=== PATIENT | male | born 1955 | race Caucasian/White ===

== ENCOUNTER → 2020-07-22 | Outpatient (CLI) | payer BC ==
--- NOTE | 2020-07-25 14:41 | SLEEPCENT ---
NOCTURNAL POLYSOMNOGRAPHY DATE: 07/22/2020 ORDERED BY: EMMA Stevens Nocturnal polysomnography was performed for evaluation of sleep physiology in this patient with a history of excessive somnolence and nonrestorative sleep. 7 hours and 56 minutes of data were reviewed. There were only 165 minutes of sleep identified. Sleep latency was prolonged at 42.5 minutes. REM latency was prolonged at 222 minutes. Sleep architecture showed fragmentation. There were two REM cycles noted. Overall sleep efficiency was 35.2%. The electrocardiogram showed a sinus rhythm with an average heart rate of 68 beats per minute. Occasional PVCs were noted. EEG showed reasonably normal waveforms for wake and sleep. There were 29 respiratory events identified of 10 seconds in duration or greater for an apnea-hypopnea index of 10.5. The events were obstructive, not exclusive to sleep stage nor posture. Arousals from respiratory events occurred 6.2 times per hour. There were minor oxygen desaturations below 90%. Minimal activity was seen in the limb leads. IMPRESSION: Obstructive sleep apnea syndrome (G47.33), apnea-hypopnea index 10.5. RECOMMENDATION: The patient should be encouraged to return to [facility]. In the interim, alcohol and sedative avoidance should be practiced and caution exercised during the operation of motor vehicles.
== END ==
LOC: M SLEEP 20:00
PROVIDERS: ATTEND Physician Assistant
DX: R40.0 Somnolence (principal)

== ENCOUNTER → 2020-09-07 | Outpatient (CLI) | payer BC ==
--- NOTE | 2020-09-08 13:55 | SLEEPCENT ---
NOCTURNAL POLYSOMNOGRAPHY DATE: 09/07/2020 ORDERED BY: EMMA Stevens Nocturnal polysomnography was performed for the titration of pressure therapy in this patient with obstructive sleep apnea syndrome with apnea-hypopnea index of 10.5. For testing a ResMed AirFit F20 full face mask of medium size was used, 4 cm of water pressure were applied to the circuit, and the lights were extinguished. 7 hours and 32 minutes of data were reviewed. There were only 81 minutes of sleep identified. Sleep latency was prolonged at 48 minutes. REM latency was normal at 82 minutes. Sleep architecture was difficult to assess. There was a very prolonged period of wake in the mid portion of the study resulting in reduced sleep efficiency of 18.1%. The electrocardiogram recorded a sinus rhythm with an average heart rate of 75 beats per minute. EEG showed normal waveforms for wake and sleep. With a CPAP pressure of 6, there were only three hypopneic respiratory events noted. There was minimal limb activity appreciated. IMPRESSION: Obstructive sleep apnea syndrome (G47.33). RECOMMENDATION: Initiation of CPAP at a pressure of +6 would appear reasonable based on this study; however, the patient slept very poorly in the lab and close clinical follow-up will be necessary. Perhaps once he has become accustom to the mask, a full night of retitration would be helpful.
== END ==
LOC: M SLEEP 20:00
PROVIDERS: ATTEND Physician Assistant
DX: G47.33 Obstructive sleep apnea (adult) (pediatric) (principal)